=== PATIENT | female | born 1935 | race Caucasian/White ===

== ENCOUNTER → 2020-03-18 | Outpatient (CLI) | payer MEDICARE ==
--- NOTE | 2020-03-18 10:50 | MR ---
EXAMINATION TYPE: MR brain wo/w con DATE OF EXAM: 03/18/2020 COMPARISON: None HISTORY: Dizziness and giddiness, dysequilibrium syndrome TECHNIQUE: Multiplanar, multisequence images of the brain and brainstem is performed without and with IV contras t, utilizing 5.5 mL intravenous Gadavist . FINDINGS: Diffusion weighted images demonstrate no evidence of a recent infarct or other diffusion ab normality. There is no extra-axial fluid collection. There are confluent and scattered hyperintensi ties on inversion recovery T2-weighted sequences within the pericallosal, periventricular, subcortica l white matter, brainstem. The ventricular system and cisternal spaces are normal in size and appeara nce. The brain volume is age appropriate, there is some cortical atrophy. Midline structures demonstrate normal morphology. The craniocervical junction appears within normal limits. Post contrast images demonstrate no abnormal enhancement. The dural venous sinuses appear pa tent. The visualized sinuses are remarkable for inflammatory change in the ethmoid air cells. And the globes are intact. IMPRESSION: Age-related changes of atrophy and chronic small vessel ischemia, mild sinus disease
== END | disposition home or self-care (01) ==
LOC: RADMRIMAIN 09:17
PROVIDERS: ATTEND Family Medicine
DX: G31.1 Senile degeneration of brain, not elsewhere classified (principal); I67.82 Cerebral ischemia
CPT/HCPCS: 70553; A9585